=== PATIENT | male | born 1980 | race African-American/Black ===

== ENCOUNTER 2024-02-24 16:55 | Inpatient (IN) | payer OTHER ==
[2024-02-24 17:57] VITALS: BMI 22.1
[2024-02-24] MEDS ORDERED: BENZONATATE 200 MG CAPSULE PO PRN (18:12)
[2024-02-24] MEDS ORDERED: BENZOCAINE/MENTHOL (CHLORASEPTIC ) LOZENGE MM PRN (18:12)
[2024-02-24] MEDS ORDERED: ACETAMINOPHEN 325 MG TABLET (FP) PO PRN (18:12)
[2024-02-24] MEDS ORDERED: guaiFENesin 600 MG TABLET.ER (FP) PO PRN (18:12)
[2024-02-24] MEDS ORDERED: POLYETHYLENE GLYCOL (HEALTHYLAX) 3350 17 GM PACKET PO PRN (18:12)
[2024-02-24] MEDS ORDERED: MAGNESIUM HYDROX 2400MG/30ML ORAL SUSPENSION 30 ML CUP PO PRN (18:12)
[2024-02-24] MEDS ORDERED: NALOXONE (NARCAN) HCL 4 MG/0.1 ML SPRAY NS PRN (18:12)
[2024-02-24] MEDS ORDERED: IBUPROFEN 400 MG TABLET (FP) PO PRN (18:12)
[2024-02-24] MEDS ORDERED: MAG HYDROX/AL HYDROX/SIMETH 30 ML UNIT-DOSE CUP PO PRN (18:12)
[2024-02-24] MEDS ORDERED: hydrOXYzine PAMOATE 25 MG CAPSULE (FP) PO PRN (18:12)
[2024-02-24] MEDS ORDERED: LOPERAMIDE HCL 2 MG CAPSULE PO PRN (18:12)
[2024-02-24] MEDS: MELATONIN 5 MG TABLETS PO SCH (22:02)
[2024-02-24] MEDS: THIAMINE 100 MG TABLET PO SCH (22:02)
[2024-02-24] MEDS ORDERED: IBUPROFEN 600 MG TABLET (FP) PO ONE (22:07)
[2024-02-24] MEDS ORDERED: MELATONIN 5 MG TABLETS ONE (22:07)
[2024-02-24] MEDS: TUBERCULIN PPD 5 TU/0.1ML SYRINGE (IN PATIENT USE ONLY) ID ONE (23:11)
[2024-02-25] MEDS: PRENATAL VITAMINS W/ FOLIC ACID TABLET (FP) PO SCH (10:23)
[2024-02-25] MEDS: IBUPROFEN 600 MG TABLET (FP) PO PRN (10:25)
[2024-02-25 11:14] LABS: HEMATOCRIT 36.8 % (35.4-49); HEMOGLOBIN 12.3 GM/dL (11.7-16.9); MCH 31.9 pg (25.7-33.7); MCHC 33.5 g/dl (32.0-35.9); MEAN CELL VOLUME 95.1 fl (80-96); MEAN PLT VOLUME 6.4 fl (7.5-11.1); PLATELET COUNT 450 10^3/uL (134-434); RBC 3.87 M/mm3 (4.00-5.60)
[2024-02-25 11:58] LABS: POTASSIUM 4.4 mmol/L (3.5-5.1)
[2024-02-25 12:01] LABS: ALBUMIN 3.5 g/dl (3.4-5.0); CALCIUM 9.8 mg/dL (8.5-10.1)
[2024-02-25 12:05] LABS: CREATININE 0.7 mg/dL (0.55-1.3)
[2024-02-25 12:06] LABS: BILIRUBIN,TOTAL 0.2 mg/dL (0.2-1); BLOOD UREA NITROGEN 6.2 mg/dL (7-18); TOT PROT 6.9 g/dl (6.4-8.2)
[2024-02-25] MEDS: PNEUMOC 20-VAL CONJ-DIP CRM/PF 0.5 ML SYRINGE IM ONE (12:12)
[2024-02-25 21:21] LABS: PH,URINE 8.5 (5.0-8.0); URINE APPEARANCE CLEAR; URINE BILIRUBIN NEGATIVE (NEGATIVE); URINE COLOR YELLOW; URINE GLUCOSE (UA) NEGATIVE (NEGATIVE); URINE KETONE NEGATIVE (NEGATIVE); URINE LEUK ESTERASE NEGATIVE (NEGATIVE); URINE NITRITE NEGATIVE (NEGATIVE); URINE PROTEIN NEGATIVE (NEGATIVE); URINE UROBILINOGEN 0.2 mg/dL (0.2-1.0)
[2024-02-26] MEDS: MULTIVIT-MINERALS ORAL LIQUID PO SCH (10:24)
[2024-02-26] MEDS: QUEtiapine FUMARATE 100 MG TABLET (FP) PO SCH (21:20)
[2024-03-01 06:44] VITALS: RESP 20
[2024-03-02 06:49] VITALS: BP 126/79; PULSE 67; TEMP 97.7
[2024-03-02] MEDS: NALOXONE (NYS OPIOID OVERDOSE PROGRAM) 4 MG/0.1 ML SPRAY NS SCH (09:50)
== END 2024-03-02 09:57 | disposition home or self-care (01) | DRG 772 ==
LOC: YASAS 16:55 → Y3NR 21:37 → Y3E 02-25 11:30
PROVIDERS: ADMIT Allergy & Immunology; ATTEND Psychiatry & Neurology Pain Medicine
PROC: HZ42ZZZ Group Counseling for Substance Abuse Treatment, Cognitive-Behavioral (ICD-10-PCS; principal; 2024-02-24)
DX: F16.20 Hallucinogen dependence, uncomplicated (principal); F19.282 Other psychoactive substance dependence with psychoactive substance-induced sleep disorder; G47.00 Insomnia, unspecified; Z87.891 Personal history of nicotine dependence
CPT/HCPCS: 36415; 80053; 81003; 85027; 86780; 90677; 93005; 93010; G0009